=== PATIENT | female | born 1975 ===

== ENCOUNTER 2017-03-04 22:48 | Emergency (ER) | payer BC, MEDICAID ==
[2017-03-04 22:48] VITALS: BMI 29.6
--- NOTE | 2017-03-04 23:08 | C.PDOC ---
History Of Present Illness 41 y/o female c/o chest pain that began at 22:00 tonight. Pain is sharp and intermittent. Patient denies SOB, palpitations, abdominal pain, fever, or chills. Time Seen by Provider: 03/04/17 23:10 Chief Complaint (Nursing): Chest Pain History Per: Patient History/Exam Limitations: no limitations Onset/Duration Of Symptoms: Hrs, Intermittent Episodes Current Symptoms Are (Timing): Still Present Severity: Mild Quality: Sharp Recent travel outside of the [place]: No Additional History Per: Patient Past Medical History Reviewed: Historical Data, Nursing Documentation, Vital Signs Vital Signs: Last Vital Signs Temp 98 F 03/04/17 22:51 Pulse 83 03/04/17 23:35 Resp 18 03/04/17 23:35 BP 158/88 H 03/04/17 23:35 Pulse Ox 100 03/05/17 00:10 - Medical History PMH: Asthma, HTN Surgical History: Tonsillectomy Family History: States: Diabetes (sister and aunt) - Social History Hx Alcohol Use: No Hx Substance Use: No - Immunization History Hx Tetanus Toxoid Vaccination: No Hx Influenza Vaccination: No Hx Pneumococcal Vaccination: No Review Of Systems Except As Marked, All Systems Reviewed And Found Negative. Constitutional: Negative for: Fever, Chills Cardiovascular: Positive for: Chest Pain. Negative for: Palpitations Respiratory: Negative for: Shortness of Breath Gastrointestinal: Negative for: Abdominal Pain Skin: Negative for: Rash Physical Exam - Physical Exam Appears: Non-toxic, No Acute Distress Skin: Warm, Dry, No Rash Head: Atraumatic, Normacephalic Oral Mucosa: Moist Throat: Normal, No Erythema Chest: Symmetrical, Tenderness (Parasternal area) Cardiovascular: Rhythm Regular, No Murmur Respiratory: Normal Breath Sounds, No Rales, No Rhonchi, No Wheezing Gastrointestinal/Abdominal: Soft, No Tenderness Neurological/Psych: Oriented x3 ED Course And Treatment - Laboratory Results Result Diagrams: 03/04/17 23:19 03/04/17 23:19 ECG: Interpreted By Me, Viewed By Me ECG Rhythm: Sinus Rhythm, PVC ECG Interpretation: No Acute Changes Interpretation Of ECG: NSR, no acute changes, normal tracings. Rate From EC O2 Sat by Pulse Oximetry: 100 Pulse Ox Interpretation: Normal - Radiology CXR: Interpreted by Me, Viewed By Me CXR Interpretation: Yes: No Acute Disease, Other (globular heart). No: Infiltrates Medical Decision Making Medical Decision Making: Plans: * EKG * CXR * Toradol * IV fluids Disposition Counseled Patient/Family Regarding: Diagnosis - Disposition Referrals: [facility] [Outside] Disposition Time: 00:13 Condition: STABLE Prescriptions: Naproxen 375 mg PO TIDPC #14 tablet Instructions: Chest Wall Pain (ED) Forms: [employer] (Bulgarian) - POA Present On Arrival: None - Clinical Impression Clinical Impression: Costochondritis, Chest wall pain - Scribe Statement The provider has reviewed the documentation as recorded by the Scribe Jack marks All medical record entries made by the Scribe were at my direction and personally dictated by me. I have reviewed the chart and agree that the record accurately reflects my personal performance of the history, physical exam, medical decision making, and the department course for this patient. I have also personally directed, reviewed, and agree with the discharge instructions and disposition.
[2017-03-04 23:22] LABS: BASO # 0.1 K/uL (0.0-0.2); BASO % 0.9 % (0.0-2.0); EOS # 0.3 K/uL (0.0-0.7); HEMATOCRIT 39.7 % (34.0-47.0); LYMPH # 1.7 K/uL (1.0-4.3); LYMPH % 17.3 % (20.0-40.0); MEAN CORPUSCULAR HEMOGLOBIN 29.6 pg (27.0-31.0); MEAN CORPUSCULAR HGB CONC 33.7 g/dL (33.0-37.0); MEAN PLATELET VOLUME 9.4 fL (7.2-11.7); MONO # 0.9 K/uL (0.0-0.8); MONO % 8.9 % (0.0-10.0); RED CELL DISTRIBUTION WIDTH 12.7 % (11.5-14.5)
[2017-03-04 23:34] LABS: ALKALINE PHOSPHATASE 101 U/L (38-126); ALT/SGPT 35 U/L (9-52); AST/SGOT 15 U/L (14-36); BILIRUBIN,TOTAL 0.4 mg/dL (0.2-1.3); BLOOD UREA NITROGEN 21 mg/dL (7-17); CALCIUM 8.7 mg/dl (8.6-10.4); CARBON DIOXIDE 26 mmol/L (22-30); CHLORIDE 100 mmol/L (98-107); GFR AFRICAN-AMERICAN > 60; GLUCOSE,RANDOM 95 mg/dL (65-105); POTASSIUM 3.6 mmol/L (3.6-5.2); SODIUM 135 mmol/L (132-148); TOTAL PROTEIN 8.5 g/dL (6.3-8.3)
[2017-03-05 00:55] VITALS: BP 144/90; PULSE 89; RESP 25; TEMP 98.5; O2SAT 99
--- NOTE | 2017-03-05 08:47 | RAD ---
HISTORY: chest pain COMPARISON: 03/31/2015 TECHNIQUE: Chest PA and lateral FINDINGS: LUNGS: No active pulmonary disease. PLEURA: No significant pleural effusion identified. No pneumothorax apparent. CARDIOVASCULAR: Normal. OSSEOUS STRUCTURES: No significant abnormalities. VISUALIZED UPPER ABDOMEN: Normal. OTHER FINDINGS: None. IMPRESSION: No active disease.
== END 2017-03-05 00:55 | disposition home or self-care (01) ==
LOC: C.ER 22:48
DX: M94.0 Chondrocostal junction syndrome [Tietze] (principal); R07.89 Other chest pain
CPT/HCPCS: 71020; 80053; 84484; 85025; 96374; 99284; J1885

== ENCOUNTER 2018-01-24 15:17 | Emergency (ER) | payer BC, MEDICAID ==
[2018-01-24 15:17] VITALS: BMI 29.6
[2018-01-24 15:47] VITALS: TEMP 98.9
--- NOTE | 2018-01-24 16:02 | C.PDOC ---
History Of Present Illness 42-year-old female presents to the ED after being sent by her RF MICROWAVE ENGINEER, Dr. Irwin. Patient has a one week history of suprapubic abdominal pain. She underwent a CT A/P at an outside hospital which showed, "There is a 6.3x4.0cm heterogenous well circumscribed mass posterior to the bladder in the region nof previously noted mass containing gas formation consist with an abscess on the CT scan of 08/04/2016. Pelvic ultrasound is recommended. This is in patient with total hysterectomy." Patient also underwent an ultrasound which showed she had an ovarian cyst. Patient has been c/o persistent pain and was sent by her doctor for a repeat CT and Ultrasound. Prior u/s showed ovarian cyst and her PMD wants to r/o torsion and also wants to evaluate for "abscess" seen on prior CT. She also reports some nausea. Otherwise, she denies constipation, diarrhea, vaginal discharge/bleeding. Time Seen by Provider: 01/24/18 16:00 Chief Complaint (Nursing): Abdominal Pain History Per: Patient History/Exam Limitations: no limitations Onset/Duration Of Symptoms: Other (one week ) Current Symptoms Are (Timing): Still Present Location Of Pain/Discomfort: Suprapubic Quality Of Discomfort: "Pain" Associated Symptoms: Nausea. denies: Diarrhea, Constipation Additional History Per: Patient Abnormal Vaginal Bleeding: No Past Medical History Reviewed: Historical Data, Nursing Documentation, Vital Signs Vital Signs: Last Vital Signs Temp 98.9 F 01/24/18 15:41 Pulse 95 H 01/24/18 15:41 Resp 20 01/24/18 15:41 BP 137/88 01/24/18 15:41 Pulse Ox 99 01/24/18 15:41 - Medical History PMH: Asthma, HTN Surgical History: Tonsillectomy Family History: States: Diabetes (sister and aunt) - Social History Hx Alcohol Use: No Hx Substance Use: No - Immunization History Hx Tetanus Toxoid Vaccination: No Hx Influenza Vaccination: No Hx Pneumococcal Vaccination: No Review Of Systems Constitutional: Negative for: Fever, Chills ENT: Negative for: Ear Pain Cardiovascular: Negative for: Chest Pain, Palpitations, Edema, Light Headedness Respiratory: Negative for: Cough, Shortness of Breath, SOB with Excertion, Wheezing Gastrointestinal: Positive for: Nausea, Abdominal Pain (suprapubic ). Negative for: Vomiting, Diarrhea, Constipation Genitourinary: Negative for: Dysuria, Frequency, Incontinence, Hematuria, Vaginal Discharge, Vaginal Bleeding Skin: Negative for: Rash, Lesions Neurological: Negative for: Weakness, Numbness Physical Exam - Physical Exam Appears: Non-toxic, No Acute Distress Skin: Normal Color, Warm, Dry Head: Atraumatic, Normacephalic Eye(s): bilateral: Normal Inspection Oral Mucosa: Moist Neck: Supple Chest: Symmetrical, No Deformity, No Tenderness Cardiovascular: Rhythm Regular, No Murmur Respiratory: Normal Breath Sounds, No Rales, No Rhonchi, No Wheezing Gastrointestinal/Abdominal: Soft, Tenderness (suprapubic ), No Guarding, No Rebound Extremity: Normal ROM, Capillary Refill (less than 2 seconds ) Neurological/Psych: Oriented x3, Normal Speech, Normal Cognition ED Course And Treatment - Laboratory Results Result Diagrams: 01/24/18 16:27 01/24/18 16:27 O2 Sat by Pulse Oximetry: 99 (on RA ) Medical Decision Making Medical Decision Making: Impression: 42 year old female with suprapubic abdominal pain Plan: * bloodwork * urinalysis * US Transvaginal * CT A/P * Toradol IVP * IV Fluids * reassess and disposition Progress: Bloodwork, urinalysis, US Transvaginal, CT A/P ordered and reviewed. Toradol IVP and IV Fluids given. U/s shows: The patient is status post hysterectomy. The right ovary is not visualized, consistent with provided history of surgical resection. The left ovary measures approximately 7.4 x 4.7 x 5.4 cm. 3.1 x 2.5 x 3.0 cm and 1.5 x 1.3 x 1.6 cm complex cysts. 3.8 x 3.7 x 4.5 cm simple cyst. Blood flow is demonstrated to the left ovary. Impression: The patient is status post hysterectomy and right oophorectomy. 3.1 cm and 1.6 cm complex left ovarian cyst. 4.5 cm simple left ovarian cyst. CT FINDINGS: LOWER THORAX: Mild bibasilar atelectasis. No visible pleural effusion or pneumothorax. LIVER: Unremarkable. GALLBLADDER AND BILE DUCTS: Unremarkable. PANCREAS: Unremarkable. SPLEEN: 1.9 cm probable splenule. Otherwise unremarkable. ADRENALS: Unremarkable. KIDNEYS AND URETERS: The kidneys enhance symmetrically. No hydronephrosis or obstructing calculus identified. Punctate nonobstructing bilateral renal calculi. VASCULATURE: No aortic aneurysm. BOWEL: Stomach is nondistended. Lack of oral contrast limits evaluation for bowel pathology. Bowel loops appear within normal limits of caliber without evidence of obstruction. APPENDIX: The appendix is not visualized. No secondary signs of acute appendicitis. PERITONEUM: No significant free fluid. No definite free air. LYMPH NODES: Prominent but sub cm retroperitoneal and left pelvic sidewall lymph nodes. BLADDER: Unremarkable. REPRODUCTIVE: The uterus is not identified, consistent with hysterectomy. Adnexal cyst seen to better advantage on transvaginal pelvic ultrasound. BONES: No acute osseous abnormality is detected. OTHER FINDINGS: None. IMPRESSION: Adnexal cysts seen to better advantage on transvaginal pelvic ultrasound. Recommend 6 week follow-up pelvic ultrasound to assess for resolution. Punctate nonobstructing bilateral renal calculi. Prominent but sub cm retroperitoneal and left pelvic sidewall lymph nodes. Additional findings as above. Patient was made aware of incidental findings. Spoke to data processing operator Dr. Prasad verma who will do surgery at 11am tomorrow for removal of ovarian cyst. Disposition - Disposition Referrals: Marlene Irwin MD [Staff Provider] - Disposition: HOME/ ROUTINE Disposition Time: 18:28 Condition: GOOD Additional Instructions: Return at 9am tomorrow to same day surgery for surgery. Nothing to eat after midnight Forms: [employer] (Czech) - Clinical Impression Clinical Impression: Splenunculi, Renal stone, Lymphadenopathy, Adnexal cyst - Scribe Statement The provider has reviewed the documentation as recorded by the Scribe (Rin Ro) Provider Attestation: All medical record entries made by the Scribe were at my direction and personally dictated by me. I have reviewed the chart and agree that the record accurately reflects my personal performance of the history, physical exam, medical decision making, and the department course for this patient. I have also personally directed, reviewed, and agree with the discharge instructions and disposition.
[2018-01-24] MEDS ORDERED: Sodium Chloride 0.9% 1,000 ML IV ONE (16:11)
[2018-01-24] MEDS ORDERED: Sodium Chloride 0.9% 1,000 ML ONE (16:17)
[2018-01-24 16:31] LABS: BASO % 0.6 % (0.0-2.0); EOS # 0.1 K/uL (0.0-0.7); EOS % 1.8 % (0.0-4.0); HEMOGLOBIN 14.4 g/dL (11.0-16.0); LYMPH % 12.5 % (20.0-40.0); MEAN CELL VOLUME 86.9 fL (81.0-99.0); MEAN CORPUSCULAR HEMOGLOBIN 30.9 pg (27.0-31.0); MEAN CORPUSCULAR HGB CONC 35.6 g/dL (33.0-37.0); MEAN PLATELET VOLUME 8.3 fL (7.2-11.7); MONO # 0.7 K/uL (0.0-0.8); MONO % 9.4 % (0.0-10.0); NEUT # 5.8 K/uL (1.8-7.0); NEUT % 75.7 % (50.0-75.0); RBC 4.64 Mil/uL (3.80-5.20); RED CELL DISTRIBUTION WIDTH 12.6 % (11.5-14.5); WHITE BLOOD COUNT 7.6 K/uL (4.8-10.8)
[2018-01-24 16:45] LABS: ALB/GLOB RATIO 1.2 (1.0-2.1); ALBUMIN 4.4 g/dL (3.5-5.0); ALT/SGPT 24 U/L (9-52); AST/SGOT 14 U/L (14-36); BLOOD UREA NITROGEN 10 mg/dL (7-17); CALCIUM 9.4 mg/dl (8.6-10.4); GFR NON-AFRICAN AMERICAN > 60; LIPASE 45 U/L (23-300)
[2018-01-24 17:02] LABS: SQUAMOUS EPITHIAL 9 /hpf (0-5); URINE BACTERIA RARE (<OCC); URINE BILIRUBIN NEGATIVE (NEGATIVE); URINE BLOOD NEGATIVE (NEGATIVE); URINE CLARITY Hazy (Clear); URINE GLUCOSE (UA) NORMAL (Normal); URINE LEUKOCYTE ESTERASE NEG Leu/uL (Negative); URINE PROTEIN NEGATIVE (NEGATIVE); URINE UROBILINOGEN NORMAL mg/dL (0.2-1.0)
[2018-01-24 17:03] LABS: URINE COLOR GREEN (YELLOW)
[2018-01-24] MEDS ORDERED: Iohexol 300 100 ML IJ ONE (17:19)
--- NOTE | 2018-01-24 17:59 | US ---
Indication: hx of ovarian cysts, now with pain Comparison: None available Technique: Transvaginal pelvic sonogram. Findings: The patient is status post hysterectomy. The right ovary is not visualized, consistent with provided history of surgical resection. The left ovary measures approximately 7.4 x 4.7 x 5.4 cm. 3.1 x 2.5 x 3.0 cm and 1.5 x 1.3 x 1.6 cm complex cysts. 3.8 x 3.7 x 4.5 cm simple cyst. Blood flow is demonstrated to the left ovary. Impression: The patient is status post hysterectomy and right oophorectomy. 3.1 cm and 1.6 cm complex left ovarian cyst. 4.5 cm simple left ovarian cyst.
[2018-01-24 18:10] VITALS: BP 133/86; PULSE 98
--- NOTE | 2018-01-24 18:19 | CT ---
Date of service: 01/24/2018 PROCEDURE: CT Abdomen and Pelvis with contrast HISTORY: lower abdominal pain COMPARISON: None available. TECHNIQUE: Contrast dose: 100 mL Omnipaque 300 Radiation dose: Total exam DLP = 1043.35 mGy-cm. This CT exam was performed using one or more of the following dose reduction techniques: Automated exposure control, adjustment of the mA and/or kV according to patient size, and/or use of iterative reconstruction technique. FINDINGS: LOWER THORAX: Mild bibasilar atelectasis. No visible pleural effusion or pneumothorax. LIVER: Unremarkable. GALLBLADDER AND BILE DUCTS: Unremarkable. PANCREAS: Unremarkable. SPLEEN: 1.9 cm probable splenule. Otherwise unremarkable. ADRENALS: Unremarkable. KIDNEYS AND URETERS: The kidneys enhance symmetrically. No hydronephrosis or obstructing calculus identified. Punctate nonobstructing bilateral renal calculi. VASCULATURE: No aortic aneurysm. BOWEL: Stomach is nondistended. Lack of oral contrast limits evaluation for bowel pathology. Bowel loops appear within normal limits of caliber without evidence of obstruction. APPENDIX: The appendix is not visualized. No secondary signs of acute appendicitis. PERITONEUM: No significant free fluid. No definite free air. LYMPH NODES: Prominent but sub cm retroperitoneal and left pelvic sidewall lymph nodes. BLADDER: Unremarkable. REPRODUCTIVE: The uterus is not identified, consistent with hysterectomy. Adnexal cyst seen to better advantage on transvaginal pelvic ultrasound. BONES: No acute osseous abnormality is detected. OTHER FINDINGS: None. IMPRESSION: Adnexal cysts seen to better advantage on transvaginal pelvic ultrasound. Recommend 6 week follow-up pelvic ultrasound to assess for resolution. Punctate nonobstructing bilateral renal calculi. Prominent but sub cm retroperitoneal and left pelvic sidewall lymph nodes. Additional findings as above.
[2018-01-24 18:23] VITALS: O2SAT 99
[2018-01-24 18:37] VITALS: RESP 17
== END 2018-01-24 18:36 | disposition home or self-care (01) ==
LOC: C.ER 15:17
DX: N20.0 Calculus of kidney (principal); R59.1 Generalized enlarged lymph nodes; N85.8 Other specified noninflammatory disorders of uterus
CPT/HCPCS: 74177; 76830; 80053; 81001; 83690; 85025; 96361; 96374; 99284; J1885; J7030; Q9967

== ENCOUNTER 2018-01-25 09:20 | Observation (INO) | payer BC, MEDICAID ==
[2018-01-25 09:38] VITALS: BMI 36.1
[2018-01-25 10:10] LABS: INR 1.2; PROTHROMBIN TIME 12.8 SECONDS (9.7-12.2)
[2018-01-25] MEDS ORDERED: Midazolam 2 MG/2 ML VIAL ONE (11:55)
[2018-01-25] MEDS ORDERED: Propofol 10 mg/ml Inj (20 ML) ONE (11:56)
[2018-01-25] MEDS ORDERED: Rocuronium 10 mg/ml (5 ml) ONE ×2 (12:11→13:42)
[2018-01-25] MEDS ORDERED: Succinylcholine Chloride 20 mg/ml Syr (5 ml) IV ONE (12:11)
[2018-01-25] MEDS: cefOXitin IV 2 gm in Dextrose 2 GM/50 ML BAG IVPB ONE ×2 (12:14→12:15)
[2018-01-25] MEDS ORDERED: Albuterol HFA 90 mcg/actuation (8 g) ONE (13:26)
[2018-01-25] MEDS ORDERED: Neostigmine Methylsulfate 3mg/3ml Syringe IV ONE (14:03)
[2018-01-25] MEDS ORDERED: Lactated Ringer's 1,000 ML IV ONE (14:03)
--- NOTE | 2018-01-25 14:06 | PCM.SURG1 ---
<Sd Zhang - Last Filed: 01/25/18 14:03> Surgeon's Initial Post Op Note - Surgeon's Notes Surgeon: Dr. Morley, Dr. Irwin Ring Maker: Sd Zhang PGY3 Type of Anesthesia: General Endo Anesthesia Administered By: Hoa Pre-Operative Diagnosis: Pelvic pain, L ovarian cyst Operative Findings: Endometriosis, L hemorrhagic ovarian cyst, pelvic adhesions Post-Operative Diagnosis: L hemorrhagic ovarian cyst, endometriosis, adhesions Operation Performed: Laparoscopic L ovarian cystectomy , L oophrectomy Specimen/Specimens Removed: L ovary, L ovarian cyst Estimated Blood Loss: EBL {In ML}: 10 Blood Products Given: N/A Drains Used: No Drains Post-Op Condition: Good Date of Surgery/Procedure: 01/25/18 Time of Surgery/Procedure: 14:08 <Mario Morley - Last Filed: 01/25/18 15:44> Surgeon's Initial Post Op Note - Surgeon's Notes Operative Findings: Extensive Pelvic bowel adhesions to Ovarian cyst and peritoneal adhesions Operation Performed: Lap Extensive Enterolysis and rapair of serosal tear of colon
[2018-01-25] MEDS: HYDROmorphone 0.5 mg/0.5 ml ISec IVP PRN ×2 (14:45→15:25)
[2018-01-25] MEDS: cefOXitin IV 2 gm in Dextrose 2 GM/50 ML BAG IVPB SCH (20:13)
--- NOTE | 2018-01-26 01:27 | OP ---
PROCEDURE DATE: 01/25/2018 PREOPERATIVE DIAGNOSES: 1. Ovarian cyst with extensive bowel adhesion. 2. Peritoneal adhesion. POSTOPERATIVE DIAGNOSES: 1. Ovarian cyst with extensive bowel adhesion. 2. Peritoneal adhesion. PROCEDURES DONE: 1. Laparoscopic extensive lysis of adhesion. 2. Laparoscopic repair of serosal tear of colon. SURGEON: Mario Morley MD GLUE SPREADER: Sd Zhang, PGY-2, resident. This procedure was done as a part of the original procedure done by Dr. Irwin. ANESTHESIA: General endotracheal tube anesthesia. ESTIMATED BLOOD LOSS: For this part of the procedure is around 20 mL. DRAINS: None. PATHOLOGY: None. COMPLICATIONS: None. INTRAOPERATIVE FINDINGS: The patient had extensive pelvic adhesion of the small bowel and colon with ovarian cyst, and the patient has a very superficial serosal tear of the colon. DESCRIPTION OF PROCEDURE: On intraoperative steps, this is a 42-year-old female who was undergoing laparoscopic ovarian cystectomy and exploration. The patient had extensive peritoneal adhesion as well as a large ovarian cyst. Intraoperative surgery consult was called. The patient was seen and examined, and laparoscopic lysis of adhesion was done. The part of the procedure was done to help Dr. Irwin with ovarian cystectomy. There was a very small tear of the serosa of the colon identified that was repaired with 3-0 V-Loc PDS suture. After that, rest of the procedure was continued by Dr. Irwin. There was no apparent complication up to this part of the procedure. The count of instrument and gauze was correct. Mario Morley MD
[2018-01-26] MEDS: cefOXitin IV 2 gm in Dextrose 2 GM/50 ML BAG IVPB SCH (03:40)
[2018-01-26 08:51] LABS: HEMOGLOBIN 12.6 g/dL (11.0-16.0); MEAN CELL VOLUME 88.7 fL (81.0-99.0); MEAN CORPUSCULAR HEMOGLOBIN 29.8 pg (27.0-31.0); MEAN CORPUSCULAR HGB CONC 33.6 g/dL (33.0-37.0); MEAN PLATELET VOLUME 9.5 fL (7.2-11.7); RBC 4.24 Mil/uL (3.80-5.20); RED CELL DISTRIBUTION WIDTH 12.6 % (11.5-14.5); WHITE BLOOD COUNT 11.7 K/uL (4.8-10.8)
[2018-01-26] MEDS ORDERED: Influenza Vaccine 60 MCG/0.5 ML SYR (3 yr & up) IM ONE (10:00)
--- NOTE | 2018-01-26 13:19 | CP.PCM.PN ---
Subjective - Date & Time of Evaluation Date of Evaluation: 01/26/18 Time of Evaluation: 13:16 - Subjective Subjective: Surgery Pt seen and examined. Pt feels fine. Denies fever, nausea, diarrhea, CP, SOB. VOIding. TOlerating diet. Pain controlled. Objective - Vital Signs/Intake and Output Vital Signs (last 24 hours): Temp Pulse Resp BP Pulse Ox 98 F 79 20 121/82 98 01/26/18 04:00 01/26/18 04:00 01/26/18 04:00 01/26/18 04:00 01/26/18 04:00 Intake and Output: 01/26/18 01/26/18 06:59 18:59 Intake Total 125 Balance 125 - Medications Medications: Current Medications Amlodipine Besylate (Norvasc) 10 mg PO DAILY [facility] Last Admin: 01/26/18 10:09 Dose: 10 mg Docusate Sodium (Colace) 100 mg PO BID [facility] Last Admin: 01/26/18 10:11 Dose: 100 mg Hydromorphone HCl (Dilaudid) 2 mg PO Q4H PRN PRN Reason: Pain, severe (8-10) Last Admin: 01/26/18 08:40 Dose: 2 mg Ibuprofen (Motrin Tab) 800 mg PO Q6 PRN PRN Reason: Pain, moderate (4-7) Last Admin: 01/25/18 20:17 Dose: 800 mg Metoprolol Tartrate (Lopressor) 50 mg PO BID [facility] Last Admin: 01/26/18 09:57 Dose: 50 mg Ondansetron HCl (Zofran Inj) 4 mg IVP ONCE PRN PRN Reason: Nausea/Vomiting - Labs Labs: 01/26/18 08:42 01/25/18 09:53 PT 12.8 SECONDS (9.7-12.2) H 01/25/18 09:53 INR 1.2 01/25/18 09:53 APTT 35 SECONDS (21-34) H 01/25/18 09:53 - Constitutional Appears: No Acute Distress - Head Exam Head Exam: ATRAUMATIC, NORMAL INSPECTION, NORMOCEPHALIC - Eye Exam Eye Exam: EOMI, Normal appearance, PERRL Pupil Exam: NORMAL ACCOMODATION, PERRL - ENT Exam ENT Exam: Mucous Membranes Moist, Normal Exam - Neck Exam Neck Exam: Full ROM, Normal Inspection. absent: Lymphadenopathy - Respiratory Exam Respiratory Exam: NORMAL BREATHING PATTERN - Cardiovascular Exam Cardiovascular Exam: REGULAR RHYTHM, +S1, +S2. absent: Murmur - GI/Abdominal Exam GI & Abdominal Exam: Soft, Tenderness. absent: Distended Additional comments: Incisions C/D/I - Exam Exam: NORMAL INSPECTION - Extremities Exam Extremities Exam: Full ROM, Normal Capillary Refill, Normal Inspection. absent: Joint Swelling, Pedal Edema - Back Exam Back Exam: NORMAL INSPECTION - Neurological Exam Neurological Exam: Alert, Awake, CN II-XII Intact, Normal Gait, Oriented x3 - Psychiatric Exam Psychiatric exam: Normal Affect, Normal Mood - Skin Skin Exam: Dry, Intact, Normal Color, Warm Assessment and Plan - Assessment and Plan (Free Text) Assessment: POD 1 s/p laparoscopic oophrecteomy and cystectomy -Clear for DC for surgical standpoint. -Pain control -Nausea control -Ambulate CHILANGO Molrey
[2018-01-26] MEDS ORDERED: Oxycodone/Acetaminophen 5/325 mg Tab PO PRN (13:23)
[2018-01-26 13:57] LABS: BASO # 0.1 K/uL (0.0-0.2); BASO % 0.6 % (0.0-2.0); EOS # 0.3 K/uL (0.0-0.7); EOS % 2.4 % (0.0-4.0); HEMOGLOBIN 12.3 g/dL (11.0-16.0); LYMPH # 1.5 K/uL (1.0-4.3); LYMPH % 13.1 % (20.0-40.0); MEAN CELL VOLUME 88.3 fL (81.0-99.0); MEAN CORPUSCULAR HEMOGLOBIN 30.6 pg (27.0-31.0); MEAN CORPUSCULAR HGB CONC 34.7 g/dL (33.0-37.0); MEAN PLATELET VOLUME 8.9 fL (7.2-11.7); MONO # 0.9 K/uL (0.0-0.8); MONO % 8.2 % (0.0-10.0); NEUT # 8.4 K/uL (1.8-7.0); NEUT % 75.7 % (50.0-75.0); RBC 4.02 Mil/uL (3.80-5.20); RED CELL DISTRIBUTION WIDTH 12.9 % (11.5-14.5)
[2018-01-26 14:31] LABS: ALB/GLOB RATIO 1.2 (1.0-2.1); ALBUMIN 3.6 g/dL (3.5-5.0); ALT/SGPT 18 U/L (9-52); AST/SGOT 14 U/L (14-36); BLOOD UREA NITROGEN 12 mg/dL (7-17); CALCIUM 8.9 mg/dl (8.6-10.4); GFR NON-AFRICAN AMERICAN > 60
[2018-01-26 16:35] VITALS: BP 118/82; PULSE 73; RESP 18; TEMP 98.5; O2SAT 97
== END 2018-01-26 20:00 | disposition home or self-care (01) ==
LOC: C.SDS 09:20 → C.4M 09:20
PROVIDERS: ADMIT Obstetrics & Gynecology; ATTEND Obstetrics & Gynecology
DX: N83.202 Unspecified ovarian cyst, left side (principal); K66.0 Peritoneal adhesions (postprocedural) (postinfection); S36.539A Laceration of unspecified part of colon, initial encounter; Y83.8 Other surgical procedures as the cause of abnormal reaction of the patient, or of later complication, without mention of misadventure at the time of the procedure; Y76.3 Surgical instruments, materials and obstetric and gynecological devices (including sutures) associated with adverse incidents
CPT/HCPCS: 36415; 44180; 44604; 58662; 80053; 84132; 85025; 85027; 85610; 85730; 86850; 86900; G0378; J0694; J1100; J1170; J2001; J2250; J2704; J2710; J3010; J7120

== ENCOUNTER 2018-02-19 09:48 | Day surgery (SDC) | payer BC, OTHER ==
[2018-02-19] MEDS ORDERED: Midazolam 2 MG/2 ML VIAL ONE (11:37)
[2018-02-19] MEDS ORDERED: Propofol 10 mg/ml Inj (20 ML) ONE (11:37)
[2018-02-19] MEDS ORDERED: Clindamycin 600mg/50ml NS 600 MG/50 ML BAG IVPB ONE (11:40)
[2018-02-19] MEDS ORDERED: Bupivacaine 0.25% 20 ML INJ IJ ONE (11:41)
[2018-02-19] MEDS ORDERED: HYDROmorphone 0.5 mg/0.5 ml ISec IVP PRN (12:18)
[2018-02-19] MEDS ORDERED: Oxycodone/Acetaminophen 5/325 mg Tab PO STA (14:46)
[2018-02-19 15:32] VITALS: BP 134/90; PULSE 73; RESP 16; TEMP 97.9; O2SAT 96
--- NOTE | 2018-04-03 21:37 | OP ---
PROCEDURE DATE: 04/03/2018 PREOPERATIVE DIAGNOSIS: Keloid formation and scar tissue. POSTOPERATIVE DIAGNOSIS: Keloid formation and scar tissue. PROCEDURE: Revision of a scar. SURGEON: Marlene Irwin MD. TYPE OF ANESTHESIA: General LMA. COMPLICATIONS: None. ESTIMATED BLOOD LOSS: Minimal. FLUID: 400 mL. INDICATION: The patient had undergone a laparoscopic left salpingo-oophorectomy, in which she formed a keloid and a scar, which was very unsatisfied. She was very well informed that unfortunately even though we are attempting this procedure, it can reoccur because she can re-form scar tissue. She was also informed of the risk of infection, bleeding, damage to surrounding organs and tissues, but we will make an attempt to make the scar a little cosmetically better. She was informed that this procedure could actually fail and she can re-form scar tissue. She understood the risk factors, benefits, and alternatives and informed consent was obtained. DESCRIPTION OF PROCEDURE: She was then taken to the operating room where anesthesia was found to be adequate. She was prepped and draped in a normal sterile fashion in a dorsal supine position. In that particular instance, the incision was visualized with a #15 blade. The scar was removed and we tried to break up some scar tissue. There was excellent hemostasis. It was very superficial. It was just the skin, the epidermis. Upon removing the scar then, we basically closed the incision with 4-0 Monocryl. We also gave her 0.25 of local Marcaine. Steri-Strip was applied. The patient tolerated the procedure well. Instrument and lap counts were correct x2. The patient was then taken to the recovery room in stable condition. Marlene Irwin MD
== END 2018-02-19 15:35 | disposition home or self-care (01) ==
LOC: C.SDS 09:48
PROVIDERS: ATTEND Obstetrics & Gynecology
DX: L91.0 Hypertrophic scar (principal)
CPT/HCPCS: 11402; 88304; J1170; J2250; J2704; J3010

== ENCOUNTER 2018-07-29 08:34 | Emergency (ER) | payer BC, OTHER ==
[2018-07-29 08:40] VITALS: BMI 35.9
[2018-07-29 08:50] VITALS: BP 167/116; PULSE 80; RESP 17; TEMP 99; O2SAT 99
[2018-07-29] MEDS ORDERED: Alum-Mag Hydrox-Simethicone Susp (30 mL) PO STA (09:08)
--- NOTE | 2018-07-29 09:10 | C.PDOC ---
History Of Present Illness 42-year-old female, whose past medical history includes GERD, presents to the ED for evaluation of foreign body sensation in her throat. Patient states symptoms began after eating popcorn one week ago. Patient has not taken anything for her symptoms. She presents to the ED demanding extensive radiological studies and emergency intervention. Patient has been able to eat normally and denies change in voice. Patient reports she snores at night, but denies any apneic episodes. Patient denies shortness of breath, cough, significant weight gain/loss. Time Seen by Provider: 07/29/18 08:59 Chief Complaint (Nursing): ENT Problem History Per: Patient History/Exam Limitations: None Onset/Duration Of Symptoms: Other (one week ) Current Symptoms Are (Timing): Still Present Past Medical History Reviewed: Historical Data, Nursing Documentation, Vital Signs Vital Signs: Last Vital Signs Temp 99.0 F 07/29/18 08:43 Pulse 80 07/29/18 08:43 Resp 17 07/29/18 08:43 BP 167/116 H 07/29/18 08:43 Pulse Ox 99 07/29/18 08:43 - Medical History PMH: Asthma, HTN Denies: Chronic Kidney Disease Surgical History: Tonsillectomy Family History: States: Diabetes (sister and aunt) - Social History Hx Alcohol Use: Yes Hx Substance Use: No - Immunization History Hx Tetanus Toxoid Vaccination: No Hx Influenza Vaccination: No Hx Pneumococcal Vaccination: No Review Of Systems Constitutional: Negative for: Weight loss, Other (weight gain ) ENT: Positive for: Other (foreign body sensation in throat) Respiratory: Negative for: Cough, Shortness of Breath Physical Exam - Physical Exam Appears: Non-toxic, No Acute Distress, Other (talking incessantly on the phone with multiple people, morbidly obese with large central obesity ) Skin: Normal Color, Warm, Dry Head: Atraumatic, Normacephalic Eye(s): bilateral: Normal Inspection Nose: Other (mild nasal erythema, post nasal drip ) Oral Mucosa: Moist Throat: No Erythema, No Exudate, Other (no changes invoice noted ) Neck: Normal ROM, No Midline Cervical Tenderness, No Paracervical Tenderness, Supple Lymphatic: No Adenopathy (submandibular ) Chest: Symmetrical, No Deformity, No Tenderness Cardiovascular: Rhythm Regular, No Murmur Respiratory: Normal Breath Sounds, No Rales, No Rhonchi, No Wheezing Gastrointestinal/Abdominal: Soft, No Tenderness Extremity: Normal ROM, Capillary Refill (less than 2 seconds) Neurological/Psych: Normal Speech, Normal Cognition ED Course And Treatment O2 Sat by Pulse Oximetry: 99 (on RA) Pulse Ox Interpretation: Normal Progress Note: Maalox PO and Pepcid PO given. Medical Decision Making Medical Decision Making: throat irritation x 1 week ? PND/seasonal allergies vs GERD no prior tx attempted LOW susp of FB stuck in esophagus x 1 week trial PPI/Maalox and opt f/u w ENT/GI to consider endoscopies. ROS + snoring ? snoring vs MIKE refer for sleep study Disposition Doctor Will See Patient In The: Office Counseled Patient/Family Regarding: Studies Performed, Diagnosis - Disposition Referrals: Gómez Villagran MD [Staff Provider] - Robert Vasquez MD [Staff Provider] - Sherman Wolff MD [Staff Provider] - Disposition: HOME/ ROUTINE Disposition Time: 09:09 Condition: GOOD Additional Instructions: Seasonal allergies/PND Flonase 1 spray each nostril every 12 hours until Summer Psdeudafed 30 mg every 6 hours as needed motrin/tylenol every 6 hours as needed Claritin 10 mg daily until Summer opt f/u with Dr. Vasquez (ENT) call for appt. GERD: Protonix/Pepcid daily Diet modifications for GERD outpatient follow-up w Dr. Wolff (GI) call for appt. Snoring/Sleep Apnea Consider Sleep Study Call Dr Villagran- Sleep [facility]/P[facility] Call for appt. Instructions: Sore Throat in Adults, Seasonal Allergies (DC), Acid Reflux (Gastroesophageal Reflux Disease), Adult (DC) Forms: [employer] ([place]), Work Excuse - Clinical Impression Clinical Impression: Throat discomfort - Scribe Statement The provider has reviewed the documentation as recorded by the Scribe (Rin Ro) Provider Attestation: All medical record entries made by the Scribe were at my direction and personally dictated by me. I have reviewed the chart and agree that the record accurately reflects my personal performance of the history, physical exam, medical decision making, and the department course for this patient. I have also personally directed, reviewed, and agree with the discharge instructions and disposition.
[2018-07-29] MEDS ORDERED: Aluminum Hydroxide/Magnesium Hydroxide Susp (30 mL) ONE ×2 (09:39→09:40)
== END 2018-07-29 09:42 | disposition home or self-care (01) ==
LOC: C.ER 08:34
DX: R07.0 Pain in throat (principal); I10 Essential (primary) hypertension

== ENCOUNTER 2018-07-29 11:38 | Observation (INO) | payer BC, OTHER ==
[2018-07-29 11:49] VITALS: BMI 37.2
--- NOTE | 2018-07-29 12:52 | C.PDOC ---
History Of Present Illness PERSIST THROAT FB SENSATION X 1 WEEK. ?ONSET AFTER EATING POPCORN. PS REPRODUC W SWALLOWING SOLIDS "I FEEL LIKE SOMETHING IS STUCK" BUT ABLE TO DRINK LIQUID Time Seen by Provider: 07/29/18 12:05 Chief Complaint (Nursing): ENT Problem History Per: Patient History/Exam Limitations: no limitations Onset/Duration Of Symptoms: Days Current Symptoms Are (Timing): Still Present Severity: Moderate Past Medical History Reviewed: Historical Data, Nursing Documentation, Vital Signs Vital Signs: Last Vital Signs Temp 98.8 F 07/29/18 11:50 Pulse 77 07/29/18 11:50 Resp 17 07/29/18 11:50 BP 174/119 H 07/29/18 11:50 Pulse Ox 98 07/29/18 11:50 - Medical History PMH: Asthma, HTN Denies: Chronic Kidney Disease Surgical History: Tonsillectomy Family History: States: Diabetes (sister and aunt) - Social History Hx Alcohol Use: Yes Hx Substance Use: No - Immunization History Hx Tetanus Toxoid Vaccination: No Hx Influenza Vaccination: No Hx Pneumococcal Vaccination: No Review Of Systems Except As Marked, All Systems Reviewed And Found Negative. Constitutional: Negative for: Fever ENT: Positive for: Other (throat foreign body sensation) Gastrointestinal: Negative for: Nausea, Vomiting, Abdominal Pain Physical Exam - Physical Exam Appears: Non-toxic, No Acute Distress, Other (talking on cellphone) Skin: Normal Color, Warm, Dry Head: Atraumatic, Normacephalic Eye(s): bilateral: Normal Inspection Nose: Other (mild nasal erythema, post-nasal drip) Oral Mucosa: Moist Throat: No Erythema, No Exudate, No Drooling Neck: Supple Chest: Symmetrical Cardiovascular: Rhythm Regular Respiratory: Normal Breath Sounds, No Rales, No Rhonchi, No Stridor, No Wheezing Neurological/Psych: Oriented x3, Normal Speech ED Course And Treatment - Laboratory Results Result Diagrams: 07/29/18 13:55 07/29/18 13:55 O2 Sat by Pulse Oximetry: 98 (RA) Pulse Ox Interpretation: Normal - Other Rad CXR X-Ray: Viewed By Me, Read By Radiologist Interpretation: HISTORY: Pre Op. COMPARISON: Chest x-ray performed 03/04/17. TECHNIQUE: Chest PA and lateral, 2 views. FINDINGS: LUNGS: No focal consolidation. Please note that chest x-ray has limited sensitivity for the detection of pulmonary masses. PLEURA: No significant pleural effusion identified. No definite pneumothorax . CARDIOVASCULAR: Cardiomediastinal silhouette appears top normal. No atherosclerotic calcification present. OSSEOUS STRUCTURES: No acute osseous abnormality identified. VISUALIZED UPPER ABDOMEN: Unremarkable. OTHER FINDINGS: None. IMPRESSION: No focal consolidation. Progress - Re-Evaluation Re-evaluation Note: 07/29/18 12:55 D/W DR HARRIS STATES PT IS SCHEDULED OUTPT ENDO ON 08/02 BUT CAN PERFORM PROCEDURE THIS AFTERNOON PENDING MEDICINE ACCEPTANCE. 07/29/18 13:03 D/W DR LI C/F PMD WILL ADMIT - Data Reviewed Data Reviewed: Lab, Diagnostic imaging Medical Decision Making Medical Decision Making: Plan: --Labs --ECG --CXR --Trandate IV --IV Fluids Disposition Counseled Patient/Family Regarding: Studies Performed, Diagnosis - Disposition Disposition: HOSPITALIZED Disposition Time: 13:05 Condition: STABLE - Clinical Impression Clinical Impression: Foreign body sensation in throat - Scribe Statement The provider has reviewed the documentation as recorded by the Dennis Pineda Provider Attestation: All medical record entries made by the Dennis were at my direction and personally dictated by me. I have reviewed the chart and agree that the record accurately reflects my personal performance of the history, physical exam, medical decision making, and the department course for this patient. I have also personally directed, reviewed, and agree with the discharge instructions and di sposition.
[2018-07-29] MEDS ORDERED: Sodium Chloride 0.9% 1,000 ML IV ONE ×2 (13:06→14:50)
[2018-07-29] MEDS ORDERED: Labetalol 25mg/5ml Syringe IVP STA (13:08)
--- NOTE | 2018-07-29 13:24 | CP.PCM.CON ---
History of Present Illness - History of Present Illness History of Present Illness: PGY 5 Initial GI Consult Note Past Patient History - Past Medical History & Family History Past Medical History?: Yes - Past Social History Smoking Status: Never Smoked - CARDIAC Hx Hypertension: Yes - PULMONARY Hx Asthma: Yes - NEUROLOGICAL Hx Neurological Disorder: No - HEENT Hx HEENT Problems: Yes Other/Comment: OCCASIONAL EAR INFECTIONS - RENAL Hx Chronic Kidney Disease: No - ENDOCRINE/METABOLIC Hx Endocrine Disorders: No - INTEGUMENTARY Hx Dermatological Problems: Yes Hx Psoriasis: Yes (SCALP RIGHT ELBOW LEFT EAR ABD) - GENITOURINARY/GYNECOLOGICAL Hx Genitourinary Disorders: Yes (OVARIAN CYST) - PSYCHIATRIC Hx Substance Use: No - SURGICAL HISTORY Hx Tonsillectomy: Yes - ANESTHESIA Hx Anesthesia: Yes Hx Anesthesia Reactions: No Hx Malignant Hyperthermia: No Meds Allergies/Adverse Reactions: Allergies Allergy/AdvReac Type Severity Reaction Status Date / Time erythromycin base Allergy Severe ANAPHYLAXIS Verified 07/29/18 11:46 metronidazole Allergy Intermediate RASH Verified 07/29/18 11:46 terbutaline Allergy Intermediate RASH Verified 07/29/18 11:46 - Medications Medications: Current Medications Sodium Chloride (Sodium Chloride 0.9%) 1,000 mls @ 100 mls/hr IV .Q10H ONE Stop: 07/29/18 23:05 Results - Vital Signs Recent Vital Signs: Last Vital Signs Temp 98.8 F 07/29/18 11:50 Pulse 77 07/29/18 11:50 Resp 17 07/29/18 11:50 BP 174/119 H 07/29/18 11:50 Pulse Ox 98 07/29/18 13:08
[2018-07-29] MEDS ORDERED: Sodium Chloride 0.9% 1,000 ML ONE (13:26)
[2018-07-29] MEDS ORDERED: Labetalol 5mg/ml (4ml) ONE (13:26)
--- NOTE | 2018-07-29 13:30 | CP.PCM.CON ---
<Opal Ro - Last Filed: 07/29/18 13:32> History of Present Illness - History of Present Illness History of Present Illness: Pgy5 Initial GI COnsult Yarely Quigley is a 42 year old female w/ hx of RA, asthma, HTN, obesity (BMI 37) who presented to the office with globus sensation since 07/25/2018. She was refered back to the ER for further evaluation. Pt states that the discomfort and sensation of something being stuck in the throat started after eating popcorn. She states that it was sudden and reports no similiar event in the past. She states that she attempted many home remedies including eating break, hard boiled egg, water gargles, and even trying to induce vomiting without success. Pt states that she came to [facility] today for further evaluation and she was diagnoised with probable GERD and recommended to try to h2 pamela therapy. She firmly does not agree with the diagnosis and wanted a second opinion. Pt notes that the sensation worsens after eating any solid food, but denies any sensation with liquids. Denies any weight loss, abdominal pain, nausea and vomiting. Pt states that she has normal BM without difficult. No prior endoscopic evaluation. PMHx: HTN, ASthma, psoariasis PSHx: tubes in ears as a child, bleeding cysts, D&C, hysterectomy, L ocarectomy Social Hx: Denies any smoking or illicit drugs use; social drinker Family Hx: no hx of GI related malignancies ENDO hx: none ROS: 12 point ROS conducted, neg other than the above Past Patient History - Past Medical History & Family History Past Medical History?: Yes - Past Social History Smoking Status: Never Smoked - CARDIAC Hx Hypertension: Yes - PULMONARY Hx Asthma: Yes - NEUROLOGICAL Hx Neurological Disorder: No - HEENT Hx HEENT Problems: Yes Other/Comment: OCCASIONAL EAR INFECTIONS - RENAL Hx Chronic Kidney Disease: No - ENDOCRINE/METABOLIC Hx Endocrine Disorders: No - INTEGUMENTARY Hx Dermatological Problems: Yes Hx Psoriasis: Yes (SCALP RIGHT ELBOW LEFT EAR ABD) - GENITOURINARY/GYNECOLOGICAL Hx Genitourinary Disorders: Yes (OVARIAN CYST) - PSYCHIATRIC Hx Substance Use: No - SURGICAL HISTORY Hx Tonsillectomy: Yes - ANESTHESIA Hx Anesthesia: Yes Hx Anesthesia Reactions: No Hx Malignant Hyperthermia: No Meds Allergies/Adverse Reactions: Allergies Allergy/AdvReac Type Severity Reaction Status Date / Time erythromycin base Allergy Severe ANAPHYLAXIS Verified 07/29/18 11:46 metronidazole Allergy Intermediate RASH Verified 07/29/18 11:46 scallops Allergy Intermediate SWELLING Verified 07/29/18 13:35 terbutaline Allergy Intermediate RASH Verified 07/29/18 11:46 tomato Allergy Intermediate ANGIOEDEMA Verified 07/29/18 13:35 - Medications Medications: Current Medications Sodium Chloride (Sodium Chloride 0.9%) 1,000 mls @ 100 mls/hr IV .Q10H ONE Stop: 07/29/18 23:05 Physical Exam - Constitutional Appears: Non-toxic, No Acute Distress - Head Exam Head Exam: ATRAUMATIC, NORMOCEPHALIC - Eye Exam Eye Exam: Normal appearance - ENT Exam Additional comments: right sided erythema of neeru hypopharynx, no obvious mass of lesion though exam was limited - Neck Exam Neck exam: Positive for: Normal Inspection - Respiratory Exam Respiratory Exam: Clear to Auscultation Bilateral, NORMAL BREATHING PATTERN. absent: Rales, Rhonchi, Wheezes, Respiratory Distress - Cardiovascular Exam Cardiovascular Exam: REGULAR RHYTHM, +S1, +S2 - GI/Abdominal Exam GI & Abdominal Exam: Normal Bowel Sounds, Soft. absent: Diminished Bowel Sounds, Distended, Guarding, Hernia, Rebound, Rigid, Tenderness - Extremities Exam Extremities exam: Negative for: joint swelling, pedal edema - Back Exam Back exam: NORMAL INSPECTION - Neurological Exam Neurological exam: Alert, Oriented x3 - Psychiatric Exam Psychiatric exam: Normal Affect, Normal Mood - Skin Skin Exam: Dry, Intact, Normal Color, Warm Results - Vital Signs Recent Vital Signs: Last Vital Signs Temp 98.8 F 07/29/18 11:50 Pulse 77 07/29/18 11:50 Resp 17 07/29/18 11:50 BP 174/119 H 07/29/18 11:50 Pulse Ox 98 07/29/18 13:08 Assessment & Plan - Assessment and Plan (Free Text) Assessment: Yarely Quigley is a 42F w/ hx of HTN, asthma, RA who presents with dysphagia and globus like sensation Dysphagia, etiology unclear; r/o ulcer, malignancy, structure, food, trauma Globus hx of RA Hx of Asthma -keep NPO -will neg EGD today -routine blood work, CBC, CMP, INR -aspiration precautions -hold an any additional imaging D/W Dr. Wolff <Sherman Wolff - Last Filed: 07/29/18 13:45> Meds - Medications Medications: Current Medications Sodium Chloride (Sodium Chloride 0.9%) 1,000 mls @ 100 mls/hr IV .Q10H ONE Stop: 07/29/18 23:05 Results - Vital Signs Recent Vital Signs: Last Vital Signs Temp 98.8 F 07/29/18 11:50 Pulse 77 07/29/18 11:50 Resp 17 07/29/18 11:50 BP 174/119 H 07/29/18 11:50 Pulse Ox 98 07/29/18 13:08 Attending/Attestation - Attestation I have personally seen and examined this patient.: Yes I have fully participated in the care of the patient.: Yes I have reviewed all pertinent clinical information: Yes Notes (Text): 07/29/18 13:36 I have seen and examined patient with GI fellow. Agree with above documentation with the following additions. In brief, this is a 42 year old female with history of obesity (BMI 37), rheumatoid arthritis, asthma, who presents to hospital with progressive dysphagia. She notes a progressive dysphagia to solid foods for the past 4 days that began after eating popcorn. Prior to this she was in usual state of health. She reports a globus sensation and a feeling that food is getting "stuck" while trying to swallow requiring copious water ingestion. She otherwise denies nausea, vomiting, fever/chills, weight loss, rectal bleeding, or change in bowel habits. She went to ER a few days ago and was given treatment with h2 pamela therapy without resolution of symptoms. No prior endoscopic evaluation. Additional physical examination: Abdomen: no palpable hepato/splenomegaly Obesity Rheumatoid arthritis Asthma Dysphagia - Given progressive dysphagia without clear etiology and non-response to conservative medical therapy, plan for EGD for further evaluation - NPO - Obtain CXR - Further recommendations following endoscopic evaluation
--- NOTE | 2018-07-29 13:52 | RAD ---
HISTORY: Pre Op COMPARISON: Chest x-ray performed 03/04/17 TECHNIQUE: Chest PA and lateral, 2 views FINDINGS: LUNGS: No focal consolidation. Please note that chest x-ray has limited sensitivity for the detection of pulmonary masses. PLEURA: No significant pleural effusion identified. No definite pneumothorax . CARDIOVASCULAR: Cardiomediastinal silhouette appears top normal. No atherosclerotic calcification present. OSSEOUS STRUCTURES: No acute osseous abnormality identified. VISUALIZED UPPER ABDOMEN: Unremarkable. OTHER FINDINGS: None. IMPRESSION: No focal consolidation.
--- NOTE | 2018-07-29 13:57 | CP.PCM.HP ---
<Medhat Alfred - Last Filed: 07/29/18 15:00> History of Present Illness - History of Present Illness History of Present Illness: PGY-1 H&P for Hospitalist Dr Gee service cc: "I feel something sharp in my throat" Patient is a 42 year old female with past medical history of HTN, Asthma, Psoriasis presenting to the ED complaining of feeling as if something is stuck in her throat since two fridays ago. Patient states she ate some popcorn prior to feeling sharp sensation in her throat. PAtient admits to having associated difficulty breathing, however, is not currently having dyspnea. Denies having difficulty swallowing liquids, however, does have difficulty eating solid. Patient has tried eating rice balls and tortillas chips as recommended from a website online, and has also tried gagging and putting finger down her throat to vomit, but did not relieve her symptoms. Patient denies nausea or vomiting. Denies any bowel changes, or GI bleeding. Denies weight changes, fever, chills, chest pain. Patient denies any diet changes, denies consuming coffee, energy drinks, alcohol, chocolate, tobacco, tea, deep fried foods. Patient was seen in the ED earlier today and was discharged with PPI/pepcid but decided to come back for a second opinion. PMD: Dr Pennie Ro All: Erythromycin, flagyl, terbutaline, Scallops, tomatoes (anaphylaxis) Pmhx: Asthma, HTN, psoriasis Pshx: partial hysterectomy (07/2016) Full hysterectomy (02/2018) due to multiple ovarian cysts, tonsillectomy Fmhx: ESRD (father), Stomach ulcers (mother) Sochx: denies tobacco, alcohol or drug use, works as work order clerk, lives with and 3 children Present on Admission - Present on Admission Any Indicators Present on Admission: No Review of Systems - Review of Systems All systems: reviewed and no additional remarkable complaints except Review of Systems: as stated in HPI Past Patient History - Past Medical History & Family History Past Medical History?: Yes - Past Social History Smoking Status: Never Smoked - CARDIAC Hx Hypertension: Yes - PULMONARY Hx Asthma: Yes - NEUROLOGICAL Hx Neurological Disorder: No - HEENT Hx HEENT Problems: Yes Other/Comment: OCCASIONAL EAR INFECTIONS - RENAL Hx Chronic Kidney Disease: No - ENDOCRINE/METABOLIC Hx Endocrine Disorders: No - INTEGUMENTARY Hx Dermatological Problems: Yes Hx Psoriasis: Yes (SCALP RIGHT ELBOW LEFT EAR ABD) - GENITOURINARY/GYNECOLOGICAL Hx Genitourinary Disorders: Yes (OVARIAN CYST) - PSYCHIATRIC Hx Substance Use: No - SURGICAL HISTORY Hx Tonsillectomy: Yes - ANESTHESIA Hx Anesthesia: Yes Hx Anesthesia Reactions: No Hx Malignant Hyperthermia: No Meds Allergies/Adverse Reactions: Allergies Allergy/AdvReac Type Severity Reaction Status Date / Time erythromycin base Allergy Severe ANAPHYLAXIS Verified 07/29/18 11:46 metronidazole Allergy Intermediate RASH Verified 07/29/18 11:46 scallops Allergy Intermediate SWELLING Verified 07/29/18 13:35 terbutaline Allergy Intermediate RASH Verified 07/29/18 11:46 tomato Allergy Intermediate ANGIOEDEMA Verified 07/29/18 13:35 Physical Exam - Constitutional Appears: Non-toxic, No Acute Distress - Head Exam Head Exam: ATRAUMATIC, NORMAL INSPECTION, NORMOCEPHALIC - Eye Exam Eye Exam: EOMI, Normal appearance - ENT Exam ENT Exam: Mucous Membranes Moist, Normal Exam, Normal Oropharynx - Expanded ENT Exam Expanded Mouth exam: normal external inspection. absent: muffled voice - Neck Exam Neck exam: Negative for: Lymphadenopathy, Thyromegaly - Respiratory Exam Respiratory Exam: Clear to Auscultation Bilateral, NORMAL BREATHING PATTERN. absent: Rales, Rhonchi, Wheezes - Cardiovascular Exam Cardiovascular Exam: REGULAR RHYTHM, +S1, +S2 - GI/Abdominal Exam GI & Abdominal Exam: Normal Bowel Sounds, Soft. absent: Distended, Tenderness - Extremities Exam Extremities exam: Positive for: full ROM, normal inspection. Negative for: pedal edema, tenderness - Back Exam Back exam: NORMAL INSPECTION. absent: tenderness - Neurological Exam Neurological exam: Alert, Oriented x3 - Psychiatric Exam Psychiatric exam: Normal Affect, Normal Mood - Skin Skin Exam: Dry, Intact, Normal Color, Warm Results - Vital Signs Recent Vital Signs: Last Vital Signs Temp 98.7 F 07/29/18 13:52 Pulse 79 07/29/18 13:52 Resp 17 07/29/18 11:50 BP 150/84 07/29/18 13:52 Pulse Ox 98 07/29/18 13:57 - Labs Result Diagrams: 07/29/18 13:55 07/29/18 13:55 Assessment & Plan - Assessment and Plan (Free Text) Assessment: 42 year old female with pmhx of HTN, asthma, psoriasis, present to ER for globus sensation throat after eating popcorn about 10 days ago, evaluated for possible foreign body, going for endoscopy today with GI Dr Wolff, EKG, chest xray, labs for medical clearance prior to procedure Plan: globus sensation/possible foreign body - plan for endoscopy - preop clearance - EKG NSR - Chest Xray - no focal consolidations - blood work wnl - PT/PTT/INR 12/38/1.1 - GI consult - Dr Wolff - patient NPO for GI procedure today uncontrolled HTN - patient is asymptomatic, noted to be upset - in ED IV labetalol 20mg x 1 - blood pressure improved - patient reported took home meds norvasc and metoprolol this morning - patient is NPO, pending endoscopy to resume home meds - monitor BP hx of Asthma - Patient not in acute asthma exarcerbation - lungs clear on exam - albuterol Q6H PRN hx of Psoriasis on Consentyx injections - compliant with therapy, so far two months of therapy will continue to follow up with Rheum outpatient Obesity BMI 37.2 follow up with PMD PPX DVT and GI hold prior to procedure NPO prior to procedure Dispo: Patient is medically optimized for endoscopy. GI and anesthesia to discuss risk/benefits prior to procedure Plan discussed with Dr Gerard Alfred, PGY-1 - Date & Time Date: 07/29/18 Time: 14:34 <Donita Gee V - Last Filed: 07/29/18 16:46> Results - Vital Signs Recent Vital Signs: Last Vital Signs Temp 98.6 F 07/29/18 16:31 Pulse 71 07/29/18 16:31 Resp 16 07/29/18 16:31 BP 164/107 H 07/29/18 16:31 Pulse Ox 95 07/29/18 16:31 - Labs Result Diagrams: 07/29/18 13:55 07/29/18 13:55 Labs: Laboratory Results - last 24 hr 07/29/18 07/29/18 07/29/18 13:55 13:55 13:55 WBC 6.1 RBC 4.69 Hgb 14.3 D Hct 41.4 MCV 88.3 MCH 30.4 MCHC 34.4 RDW 12.8 Plt Count 275 MPV 9.3 Neut % (Auto) 59.3 Lymph % (Auto) 25.2 [place] % (Auto) 10.6 H Eos % (Auto) 3.6 Baso % (Auto) 1.3 Neut # (Auto) 3.6 Lymph # (Auto) 1.5 [place] # (Auto) 0.6 Eos # (Auto) 0.2 Baso # (Auto) 0.1 PT 12.0 INR 1.1 APTT 38 H Sodium 137 Potassium 4.2 Chloride 103 Carbon Dioxide 26 Anion Gap 12 BUN 13 Creatinine 0.5 L Est GFR ( Amer) > 60 Est GFR (Non-Af Amer) > 60 Random Glucose 99 Calcium 9.5 Attending/Attestation - Attestation I have personally seen and examined this patient.: Yes I have fully participated in the care of the patient.: Yes I have reviewed all pertinent clinical information: Yes Notes (Text): This is a 42-year-old female history of asthma, psoriasis who comes in for persistent globus sensation for about 11 days. Patient reports that she was eating popcorn about 11 days ago had attempted home remedies that she found on the Internet including eating fruits with MAC out what ever was in her throat did not take any medications for this had not seen a doctor for this but came in because she felt scared to the emergency room. Patient was initially discharged this morning from the ED with recommendations to follow-up outpatient with pulmonary ENT and GI and was noted to follow-up for endoscopy later this week. However she still felt quite uncomfortable which prompted her to come back to the ED later today. I did speak with the patient at bedside and she is able to speak clearly she does not appear acute distress note but noted to be very upset from her early experience today. She reports that she took her blood pressure pills this morning clonidine Norvasc 10 Lopressor. She reports that since this incident 11 days ago her diet had changed but denies dysphagia to solids or liquids but reports that she just feels like something is stuck in her throat. Patient is not a smoker nor has attempted PPI. Patient noted high blood pressure at bedside however she is visibly upset during her experience from earlier today she did receive a dose of labetalol blood pressure did improve appropriately. Reviewed both EKG and chest x-ray prior to endoscopy which did not show any acute abnormality. Patient is medically optimized for EGD per GI and/or anesthesia to discuss risks and benefits of procedure prior to scope. I did review with patient in terms of her allergies which she reports were diagnosed during her prior by 819 years ago which she reports anap hylaxis appears unclear in terms of what type of reaction she experienced and she reports she has not seen an j2ee developer and I did recommend to her that she may want to see an outpatient j2ee developer. Patient is not a smoker and I commended her for that. Patient advised to go for outpatient flu vaccination which can be given in house since she has not had it done this year. Patient denies any upper respiratory infection or symptoms consistent. Assessment/plan 1. Foreign body ingestion/globus sensation GI on board Dr. Wolff to take for endoscopy later this afternoon Patient n.p.o. for procedure Pending results of procedure to determine management Hold anticoagulation preop for procedure Patient is medically optimized prior to endoscopy. 2. Uncontrolled hypertension Patient reports she took her pills prior to coming to the hospital today without difficulty Patient notably upset at bedside which is contributing to her high blood pressure patient is asymptomatic in terms of headache, chest pain, oliguria or eye complaints Blood pressure improved status post 1 dose of labetalol in the ED EKG normal sinus 3. History of asthma Patient is denying any acute exacerbation. Reports she takes her albuterol as needed only chest x-ray shows no acute pathology 4. Obesity Recommend for diet and lifestyle modifications 5. History of psoriasis Patient is followed by a physician in [place] and is compliant on her outpatient therapy 6. Prophylactic measure N.p.o. DVT prophylaxis contraindicated at this time given for preop for procedure SCDs Also tomorrow I did encourage patient to follow-up with her PMD Dr. Joyce Ro since she has not had her follow-up visits for this year.
[2018-07-29 14:07] LABS: BASO # 0.1 K/uL (0.0-0.2); BASO % 1.3 % (0.0-2.0); EOS # 0.2 K/uL (0.0-0.7); EOS % 3.6 % (0.0-4.0); LYMPH # 1.5 K/uL (1.0-4.3); LYMPH % 25.2 % (20.0-40.0); MEAN CELL VOLUME 88.3 fL (81.0-99.0); MEAN CORPUSCULAR HEMOGLOBIN 30.4 pg (27.0-31.0); MEAN CORPUSCULAR HGB CONC 34.4 g/dL (33.0-37.0); MEAN PLATELET VOLUME 9.3 fL (7.2-11.7); MONO # 0.6 K/uL (0.0-0.8); MONO % 10.6 % (0.0-10.0); NEUT # 3.6 K/uL (1.8-7.0); NEUT % 59.3 % (50.0-75.0); NRBC % 0.1 % (0.0-2.0); RBC 4.69 Mil/uL (3.80-5.20); RED CELL DISTRIBUTION WIDTH 12.8 % (11.5-14.5); WHITE BLOOD COUNT 6.1 K/uL (4.8-10.8)
[2018-07-29 14:10] LABS: HEMOGLOBIN 14.3 g/dL (11.0-16.0)
[2018-07-29 14:12] LABS: INR 1.1
[2018-07-29 14:16] LABS: GFR NON-AFRICAN AMERICAN > 60
[2018-07-29 14:19] LABS: BLOOD UREA NITROGEN 13 mg/dL (7-17); CALCIUM 9.5 mg/dl (8.6-10.4)
[2018-07-29] MEDS ORDERED: Lidocaine Hydrochloride 5 ML INJ ONE (14:47)
[2018-07-29] MEDS ORDERED: Midazolam 2 MG/2 ML VIAL ONE (14:47)
[2018-07-29] MEDS ORDERED: Propofol 10 mg/ml Inj (20 ML) ONE (14:47)
[2018-07-29] MEDS ORDERED: Albuterol HFA 90 mcg/actuation (8 g) INH PRN (14:58)
[2018-07-29] MEDS ORDERED: Lactated Ringer's 500 ML IV SCH (15:15)
[2018-07-29 16:33] VITALS: TEMP 98.6; O2SAT 95
[2018-07-29] MEDS ORDERED: Metoprolol 1 mg/ml Inj IVP ONE (16:34)
[2018-07-29] MEDS ORDERED: Aluminum Hydroxide/Magnesium Hydroxide Susp (30 mL) PO PRN (16:49)
--- NOTE | 2018-07-29 17:17 | CP.PCM.DIS ---
<Medhat Alfred - Last Filed: 07/29/18 18:43> Provider - Provider Date of Admission: 07/29/18 13:07 Attending physician: Donita Gee DO Consults: 07/29/18 13:08 Gastroenterology Consult Stat Comment: *ALREADY CALLED Consulting Provider: Sherman Wolff Consulting Physician: Sherman Wolff Reason for Consult: FOREIGN BODY SENSATION Time Spent in preparation of Discharge (in minutes): 180 Diagnosis - Discharge Diagnosis (1) Esophagitis determined by endoscopy Status: Acute (2) Gastritis Status: Acute (3) HTN (hypertension) Status: Chronic (4) History of asthma Status: Chronic Hospital Course - Lab Results Lab Results: Most Recent Lab Values WBC 6.1 K/uL (4.8-10.8) 07/29/18 13:55 RBC 4.69 Mil/uL (3.80-5.20) 07/29/18 13:55 Hgb 14.3 g/dL (11.0-16.0) D 07/29/18 13:55 Hct 41.4 % (34.0-47.0) 07/29/18 13:55 MCV 88.3 fL (81.0-99.0) 07/29/18 13:55 MCH 30.4 pg (27.0-31.0) 07/29/18 13:55 MCHC 34.4 g/dL (33.0-37.0) 07/29/18 13:55 RDW 12.8 % (11.5-14.5) 07/29/18 13:55 Plt Count 275 K/uL (130-400) 07/29/18 13:55 MPV 9.3 fL (7.2-11.7) 07/29/18 13:55 Neut % (Auto) 59.3 % (50.0-75.0) 07/29/18 13:55 Lymph % (Auto) 25.2 % (20.0-40.0) 07/29/18 13:55 [place] % (Auto) 10.6 % (0.0-10.0) H 07/29/18 13:55 Eos % (Auto) 3.6 % (0.0-4.0) 07/29/18 13:55 Baso % (Auto) 1.3 % (0.0-2.0) 07/29/18 13:55 Neut # (Auto) 3.6 K/uL (1.8-7.0) 07/29/18 13:55 Lymph # (Auto) 1.5 K/uL (1.0-4.3) 07/29/18 13:55 [place] # (Auto) 0.6 K/uL (0.0-0.8) 07/29/18 13:55 Eos # (Auto) 0.2 K/uL (0.0-0.7) 07/29/18 13:55 Baso # (Auto) 0.1 K/uL (0.0-0.2) 07/29/18 13:55 PT 12.0 SECONDS (9.7-12.2) 07/29/18 13:55 INR 1.1 07/29/18 13:55 APTT 38 SECONDS (21-34) H 07/29/18 13:55 Sodium 137 mmol/L (132-148) 07/29/18 13:55 Potassium 4.2 mmol/L (3.6-5.2) 07/29/18 13:55 Chloride 103 mmol/L (98-107) 07/29/18 13:55 Carbon Dioxide 26 mmol/L (22-30) 07/29/18 13:55 Anion Gap 12 (10-20) 07/29/18 13:55 BUN 13 mg/dL (7-17) 07/29/18 13:55 Creatinine 0.5 mg/dL (0.7-1.2) L 07/29/18 13:55 Est GFR ( Amer) > 60 07/29/18 13:55 Est GFR (Non-Af Amer) > 60 07/29/18 13:55 POC Glucose (mg/dL) 108 mg/dL (65-110) 07/29/18 17:05 Random Glucose 99 mg/dL (65-105) 07/29/18 13:55 Calcium 9.5 mg/dl (8.6-10.4) 07/29/18 13:55 - Hospital Course Hospital Course: On admission: Patient is a 42 year old female with past medical history of HTN, Asthma, Psoriasis presenting to the ED complaining of feeling as if something is stuck in her throat since two fridays ago. Patient states she ate some popcorn prior to feeling sharp sensation in her throat. PAtient admits to having associated difficulty breathing, however, is not currently having dyspnea. Denies having difficulty swallowing liquids, however, does have difficulty eating solid. Patient has tried eating rice balls and tortillas chips as recommended from a website online, and has also tried gagging and putting finger down her throat to vomit, but did not relieve her symptoms. Patient denies nausea or vomiting. Denies any bowel changes, or GI bleeding. Denies weight changes, fever, chills, chest pain. Patient denies any diet changes, denies consuming coffee, energy drinks, alcohol, chocolate, tobacco, tea, deep fried foods. Patient was seen in the ED earlier today and was discharged with PPI/pepcid but decided to come back for a second opinion. On hospitalization: Patient admitted for observation for globus sensation, r/o foreign body obstruction, GI Dr Wolff consulted, patient taken for EGD clearance for procedure including labs, EKG and blood work done. EGD results show non complicated esophagitis, gastritis, biopsy taken. No adverse events after procedure, discused with GI, stable to discharge. Patient tolerated diet post procedure. patient advised of risk of fall post EGD procedure, nurse instructed when discharge, to bring patient with wheelchair and to be helped into taxi, patient confirmed is at home and is waiting for her. Discussed with GI who will call patient with results of biopsy. On discharge: Patient stable to discharge as per Dr Gee and Dr Wolff Patient to start Protonix 40mg per mouth daily for two weeks, Sucralfate susp 1 gm per mouth twice a day for two weeks. Patient can obtain over the counter Maalox, take as needed for indigestion. Patient to be followed by Dr Wolff for biopsy results Patient to continue home meds as indicated Patient to follow with PMD Dr Pennie Potts If symptoms worsen or persist, please return to the ER For physical exam, please refer to H&P note. This is a short summary of patient's hospitalization course. For more info, please refer to EMR. - Date & Time of H&P Date of H&P: 07/29/18 Time of H&P: 13:55 Discharge Plan - Discharge Medications Prescriptions: Pantoprazole Sodium [Protonix] 40 mg PO DAILY 14 Days #14 ect RX: Sucralfate [Carafate Oral Susp] 1 gm PO BID 14 Days dose - Follow Up Plan Condition: STABLE Disposition: HOME/ ROUTINE Instructions: High Blood Pressure in Adults, Upper GI Endoscopy, High Blood Pressure (DC), Controlling Your Blood Pressure Through Lifestyle, Upper GI Endoscopy (DC), Pantoprazole, Sucralfate Additional Instructions: Patient to start Protonix 40mg per mouth daily for two weeks, Sucralfate susp 1 gm per mouth twice a day for two weeks. Patient can obtain over the counter Maalox, take as needed for indigestion. Patient to be followed with Dr Wolff for biopsy results Patient to continue home meds as indicated Patient to follow with PMD Dr Sanket Potts If symptoms worsen or persist, please return to the ER Referrals: Sherman Wolff MD [Staff Provider] - <Donita Gee V - Last Filed: 07/30/18 07:24> Provider - Provider Date of Admission: 07/29/18 13:07 Attending physician: Donita Gee DO Consults: 07/29/18 13:08 Gastroenterology Consult Stat Comment: *ALREADY CALLED Consulting Provider: Sherman Wolff Consulting Physician: Sherman Wolff Reason for Consult: FOREIGN BODY SENSATION Hospital Course - Lab Results Lab Results: Most Recent Lab Values WBC 6.1 K/uL (4.8-10.8) 07/29/18 13:55 RBC 4.69 Mil/uL (3.80-5.20) 07/29/18 13:55 Hgb 14.3 g/dL (11.0-16.0) D 07/29/18 13:55 Hct 41.4 % (34.0-47.0) 07/29/18 13:55 MCV 88.3 fL (81.0-99.0) 07/29/18 13:55 MCH 30.4 pg (27.0-31.0) 07/29/18 13:55 MCHC 34.4 g/dL (33.0-37.0) 07/29/18 13:55 RDW 12.8 % (11.5-14.5) 07/29/18 13:55 Plt Count 275 K/uL (130-400) 07/29/18 13:55 MPV 9.3 fL (7.2-11.7) 07/29/18 13:55 Neut % (Auto) 59.3 % (50.0-75.0) 07/29/18 13:55 Lymph % (Auto) 25.2 % (20.0-40.0) 07/29/18 13:55 [place] % (Auto) 10.6 % (0.0-10.0) H 07/29/18 13:55 Eos % (Auto) 3.6 % (0.0-4.0) 07/29/18 13:55 Baso % (Auto) 1.3 % (0.0-2.0) 07/29/18 13:55 Neut # (Auto) 3.6 K/uL (1.8-7.0) 07/29/18 13:55 Lymph # (Auto) 1.5 K/uL (1.0-4.3) 07/29/18 13:55 [place] # (Auto) 0.6 K/uL (0.0-0.8) 07/29/18 13:55 Eos # (Auto) 0.2 K/uL (0.0-0.7) 07/29/18 13:55 Baso # (Auto) 0.1 K/uL (0.0-0.2) 07/29/18 13:55 PT 12.0 SECONDS (9.7-12.2) 07/29/18 13:55 INR 1.1 07/29/18 13:55 APTT 38 SECONDS (21-34) H 07/29/18 13:55 Sodium 137 mmol/L (132-148) 07/29/18 13:55 Potassium 4.2 mmol/L (3.6-5.2) 07/29/18 13:55 Chloride 103 mmol/L (98-107) 07/29/18 13:55 Carbon Dioxide 26 mmol/L (22-30) 07/29/18 13:55 Anion Gap 12 (10-20) 07/29/18 13:55 BUN 13 mg/dL (7-17) 07/29/18 13:55 Creatinine 0.5 mg/dL (0.7-1.2) L 07/29/18 13:55 Est GFR ( Amer) > 60 07/29/18 13:55 Est GFR (Non-Af Amer) > 60 07/29/18 13:55 POC Glucose (mg/dL) 108 mg/dL (65-110) 07/29/18 17:05 Random Glucose 99 mg/dL (65-105) 07/29/18 13:55 Calcium 9.5 mg/dl (8.6-10.4) 07/29/18 13:55 Attending/Attestation - Attestation I have personally seen and examined this patient.: Yes I have fully participated in the care of the patient.: Yes I have reviewed all pertinent clinical information, including history, physical exam and plan: Yes Notes (Text): 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 Discussed with GI following procedure, patient noted for esophagitis; recommend for PPI and sulcfrate. Gi will call patient at home tomorrrow or Sunday regarding biopsy result. Stable from their standpoint. Patient took her blood pressure pill (2nd dose of metopolol) Advised outpatient following for her noted allergies above since she has not seen an employee relations consultant. Patient accompanied by staff to her uber upon discharge status post GI endoscopy. Tolerated diet post procedure. Patient is recommended to follow-up with Pennie potts her PMD which she is aware.
[2018-07-29 18:49] VITALS: BP 158/105; PULSE 77; RESP 20
--- NOTE | 2018-07-30 20:39 | CARD ---
APPROVED REPORT Date of service: 07/29/2018 EKG Measurement Heart [id number] <Conclusion> Sinus rhythm with occasional premature ventricular complexes Otherwise normal ECG
== END 2018-07-29 18:35 | disposition home or self-care (01) ==
LOC: C.ER 11:38 → C.9E 13:07 → C.3T 15:50
PROVIDERS: ADMIT Hospitalist; ATTEND Hospitalist
DX: K20.9 Esophagitis, unspecified (principal); K29.70 Gastritis, unspecified, without bleeding; R13.10 Dysphagia, unspecified; Z68.37 Body mass index [BMI] 37.0-37.9, adult; R09.89 Other specified symptoms and signs involving the circulatory and respiratory systems; E66.9 Obesity, unspecified; I10 Essential (primary) hypertension; J45.909 Unspecified asthma, uncomplicated; M06.9 Rheumatoid arthritis, unspecified
CPT/HCPCS: 43239; 71046; 80048; 81025; 82948; 85025; 85610; 85730; 88305; 88312; 88342; 93005; 96374; 99285; C9113; G0378; J7030